=== PATIENT | male | born 1980 | race Caucasian/White ===

== ENCOUNTER 2017-07-02 02:29 | Emergency (ER) | payer MEDICAID, MEDICARE ==
[2017-07-02 02:47] VITALS: BMI 24.1
[2017-07-02] MEDS ORDERED: HYDROmorphone 0.5 mg/0.5 ml ISec IVP STA (02:49)
[2017-07-02 02:50] VITALS: RESP 18
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
[2017-07-02 03:30] LABS: ALBUMIN 4.1 g/dL (3.0-4.8); BLOOD UREA NITROGEN 9 mg/dL (7-21); CALCIUM 9.7 mg/dL (8.4-10.5); GFR AFRICAN-AMERICAN > 60; GFR NON-AFRICAN AMERICAN > 60
[2017-07-02 03:31] LABS: ALB/GLOB RATIO 1.2 (1.1-1.8); ALT/SGPT 47 U/L (7-56); AST/SGOT 42 U/L (17-59)
[2017-07-02 03:43] LABS: B-TYPE NATRIURETIC PEPTIDE 22.2 pg/mL (0-450); TROPONIN I < 0.01 ng/mL
[2017-07-02 03:50] LABS: BASO # 0.02 K/mm3 (0.0-2.0); BASO % 0.3 % (0.0-3.0); EOS # 0.2 (0.0-0.7); EOS % 2.7 % (1.5-5.0); GRAN # 2.81 (1.4-6.5); GRAN % 42.1 % (50.0-68.0); HEMOGLOBIN 15.3 g/dL (14.0-18.0); LYMPH % 45.3 % (22.0-35.0); MEAN CELL VOLUME 101.4 fl (80.0-105.0); MEAN CORPUSCULAR HEMOGLOBIN 34.8 pg (25.0-35.0); MEAN CORPUSCULAR HGB CONC 34.3 g/dl (31.0-37.0); MEAN PLATELET VOLUME 10.8 fl (7.0-11.0); MONO # 0.6 (0.1-0.6); MONO % 9.6 % (1.0-6.0); RBC 4.4 10^6/uL (3.5-6.1); RED CELL DISTRIBUTION WIDTH 12.7 % (11.5-14.5); WHITE BLOOD COUNT 6.7 10^3/ul (4.5-11.0)
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
[2017-07-02 04:22] LABS: CK-MB 4.9 ng/mL (0.0-3.6)
[2017-07-02 04:56] VITALS: BP 124/72; PULSE 56; TEMP 98; O2SAT 98
--- NOTE | 2017-07-02 17:34 | CARD ---
APPROVED REPORT EKG Measurement Heart [id number] <Conclusion> Sinus bradycardia accelerated conduction Otherwise normal ECG
== END 2017-07-02 04:57 | disposition home or self-care (01) ==
LOC: ED 02:29
DX: S09.90XA Unspecified injury of head, initial encounter (principal); T14.90XA Injury, unspecified, initial encounter; Y04.0XXA Assault by unarmed brawl or fight, initial encounter
CPT/HCPCS: 70450; 71250; 80053; 82550; 82553; 83615; 83880; 84484; 85025; 93005; 96374; 96375; 99284; J1170; J1885; J2405